=== PATIENT | male | born 1985 | race Caucasian/White ===

== ENCOUNTER 2016-07-21 18:45 | Emergency (ER) | payer SELFPAY ==
[2016-07-21 18:46] VITALS: BMI 32.5
[2016-07-21 18:58] VITALS: TEMP 98.6
--- NOTE | 2016-07-21 19:40 | C.PDOC ---
History Of Present Illness 31 year old patient, with a past medical history of asthma and anxiety, presents to the ED requesting a refill on his Celexa for anxiety. [facility], but was unable to be seen due to current lack of insurance. He is requesting the refill because [place] the [place] 2 [place]. Patient denies any anxiety symptoms, shortness of breath, chest pain, nausea, vomiting, or any other complaints at this time. Time Seen by Provider: 07/21/16 19:18 Chief Complaint (Nursing): Med Refill History Per: Patient History/Exam Limitations: no limitations Onset/Duration Of Symptoms: Other Severity: None Pain Scale Rating Of: 0 Recent travel outside of the [place]: No Additional History Per: Patient Past Medical History Reviewed: Historical Data, Nursing Documentation, Vital Signs Vital Signs: Last Vital Signs Temp 98.6 F 07/21/16 18:55 Pulse 75 07/21/16 19:45 Resp 18 07/21/16 19:45 BP 122/72 07/21/16 19:45 Pulse Ox 96 07/21/16 20:53 - Medical History PMH: Anxiety, Asthma Family History: States: Unknown Family Hx - Social History Hx Tobacco Use: Yes Hx Alcohol Use: No Hx Substance Use: No - Immunization History Hx Tetanus Toxoid Vaccination: No Hx Influenza Vaccination: No Hx Pneumococcal Vaccination: No Review Of Systems Except As Marked, All Systems Reviewed And Found Negative. Cardiovascular: Negative for: Chest Pain Respiratory: Negative for: Shortness of Breath Gastrointestinal: Negative for: Nausea, Vomiting Psych: Negative for: Anxiety Physical Exam - Physical Exam Appears: Non-toxic, No Acute Distress Skin: Warm, Dry Head: Atraumatic, Normacephalic Eye(s): bilateral: Normal Inspection Neck: Normal ROM, Supple Chest: Symmetrical Cardiovascular: Rhythm Regular Respiratory: Normal Breath Sounds, No Rhonchi Extremity: Normal ROM Neurological/Psych: Oriented x3, Normal Speech, Normal Cognition Gait: Steady ED Course And Treatment O2 Sat by Pulse Oximetry: 96 (RA) Pulse Ox Interpretation: Normal Progress Note: Case discussed with Crisis who will evaluate the patient. Patient was given information for an evaluation at an offsite outpatient psych clinic. 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 - Scribe Statement The provider has reviewed the documentation as recorded by the Scribe Sheyla Boswell All medical record entries made by the Scribe were at my direction and personally dictated by me. I have reviewed the chart and agree that the record accurately reflects my personal performance of the history, physical exam, medical decision making, and the department course for this patient. I have also personally directed, reviewed, and agree with the discharge instructions and disposition.
[2016-07-21 19:46] VITALS: BP 122/72; PULSE 75; RESP 18
[2016-07-21 20:49] VITALS: O2SAT 96
== END 2016-07-21 19:46 | disposition home or self-care (01) ==
LOC: C.ER 18:45
DX: F41.9 Anxiety disorder, unspecified (principal)

== ENCOUNTER 2016-08-01 22:10 | Emergency (ER) | payer SELFPAY ==
[2016-08-01 22:11] VITALS: BMI 32.5
[2016-08-01 23:04] VITALS: RESP 20; TEMP 98.5; O2SAT 99
--- NOTE | 2016-08-02 00:26 | C.PDOC ---
History Of Present Illness A 31 year old male presents to the emergency room with complaints of flu like symptoms for 1 week. Patient reports a fever, cough, and sore throat. Patient denies any shortness of breath, chest pain, nausea, vomiting, diarrhea, rash, any sick contacts, and any recent travel. Patient reports low back pain. Patient denies any trauma/injury, any urinary symptoms, and bowel or bladder incontinence. Patient also reports bilateral leg pain and a chronic history of varicose veins in his bilateral lower extremities. Patient states that he had surgery on the varicose veins in his right leg 8 months ago. Patient notes that he has issues with insurance, so he was unable to have the surgery completed on the left leg. Patient denies any trauma/injury, weakness, or numbness. Patient also reports anxiety. Patient states that he ran out of his Citalopram 20 mg and hasn't taken it for the past 3 days. Patient denies depression, suicidal ideation, homicidal ideation, or hallucinations. Time Seen by Provider: 08/01/16 23:16 Chief Complaint (Nursing): Back Pain History Per: Patient History/Exam Limitations: no limitations Onset/Duration Of Symptoms: Other (1 week) Current Symptoms Are (Timing): Still Present Quality Of Discomfort: "Pain" Severity: Mild Previous Symptoms: None Associated Symptoms: None. denies: Incontinence, New Weakness, New Numbness Exacerbating Factor(s): Nothing Recent travel outside of the [place]: No Past Medical History Reviewed: Historical Data, Nursing Documentation, Vital Signs Vital Signs: Last Vital Signs Temp 98.5 F 08/01/16 22:59 Pulse 76 08/02/16 00:20 Resp 20 08/02/16 00:20 BP 122/82 08/02/16 00:20 Pulse Ox 99 08/02/16 00:59 - Medical History PMH: Anxiety, Asthma Denies: Diabetes, Hepatitis, HIV, HTN, Seizures, Sexually Transmitted Disease Family History: States: Unknown Family Hx - Social History Hx Tobacco Use: Yes Hx Alcohol Use: No Hx Substance Use: No - Immunization History Hx Tetanus Toxoid Vaccination: No Hx Influenza Vaccination: No Hx Pneumococcal Vaccination: No Review Of Systems Except As Marked, All Systems Reviewed And Found Negative. Constitutional: Positive for: Fever. Negative for: Chills, Weakness ENT: Positive for: Throat Pain (Sore throat) Cardiovascular: Positive for: Other (Varicose veins - left leg). Negative for: Chest Pain Respiratory: Positive for: Cough. Negative for: Shortness of Breath Gastrointestinal: Negative for: Nausea, Vomiting, Abdominal Pain, Diarrhea Genitourinary: Negative for: Dysuria, Frequency, Incontinence, Hematuria Musculoskeletal: Positive for: Back Pain (Low back pain) Skin: Negative for: Rash Neurological: Negative for: Weakness, Numbness, Headache, Dizziness Psych: Positive for: Anxiety. Negative for: Depression, Suicidal ideation, Other (Homicidal ideation) Physical Exam - Physical Exam Appears: Well, Non-toxic, No Acute Distress Skin: Normal Color, Warm, Dry, No Rash, No Ecchymosis Head: Atraumatic, Normacephalic Eye(s): bilateral: Normal Inspection, PERRL, EOMI Ear(s): Bilateral: Normal Nose: Normal, No Discharge, No Tenderness Oral Mucosa: Moist Throat: Normal, No Erythema, No Exudate Neck: Normal ROM, Supple Chest: Symmetrical, No Deformity, No Tenderness Cardiovascular: Rhythm Regular Respiratory: Normal Breath Sounds, No Rales, No Rhonchi, No Wheezing Gastrointestinal/Abdominal: Soft, No Tenderness, No Guarding, No Rebound Back: No CVA Tenderness, No Vertebral Tenderness, No Decreased ROM, No Muscle Spasm, No Paraspinal Tenderness Extremity: Normal ROM, No Tenderness, No Calf Tenderness, No Deformity, No Swelling, Other (Varicose veins in the left lower extemity) Neurological/Psych: Oriented x3, Normal Speech, Normal Cognition, Normal Motor, Normal Sensation Gait: Steady ED Course And Treatment O2 Sat by Pulse Oximetry: 99 Medical Decision Making Medical Decision Making: Impression: 31 yo M presents to the ER with multiple complaints. Low back pain, b/l leg pain, flu like illness x 1 week. Also is requesting for a refill of his anxiety medication, citalopram. PE is otherwise normal. Progress Notes: Patient advised that the ER can not write a refill for his citalopram because it is an SSRI and he must be monitored or followed when taking this medication, patient was offered xanax which he refuses, states that it does not work for him. Patient given referral to outpatient psych facility [facility], where he can be seen immediately and a Rx can be provided for him to control his symptoms. Disposition - Disposition Disposition: HOME/ ROUTINE Disposition Time: 00:26 Condition: GOOD Additional Instructions: Follow up with [facility], see referral sheet provided. 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 - Scribe Statement The provider has reviewed the documentation as recorded by the Mandy Lauren Provider Scribe Attestation: All medical record entries made by the Mandy were at my direction and personally dictated by me. I have reviewed the chart and agree that the record accurately reflects my personal performance of the history, physical exam, medical decision making, and the department course for this patient. I have also personally directed, reviewed, and agree with the discharge instructions and disposition.
[2016-08-02 00:43] VITALS: BP 122/82; PULSE 76
== END 2016-08-02 00:43 | disposition home or self-care (01) ==
LOC: C.ER 22:10
DX: M54.5 Low back pain (principal); F41.9 Anxiety disorder, unspecified; I73.9 Peripheral vascular disease, unspecified; B34.9 Viral infection, unspecified